=== PATIENT | female | born 1990 | race Caucasian/White ===

== ENCOUNTER 2018-06-21 19:25 | Emergency (ER) | payer OTHER ==
[2018-06-21] MEDS ORDERED: ERTAPENEM 1 GM in NS 100 ML IV ONE (21:19)
--- NOTE | 2018-06-21 21:27 | EDPHY ---
H & P Smoking Status: Current some day smoker Time Seen by Provider: 06/21/18 21:14 HPI/ROS: Chief complaint: Cat bite to chin, infection History of present illness: This is a 27-year-old female who presents to the emergency department after being bitten by her cat on her chin approximately 3 days ago. Since then she has developed redness and swelling to the chin. It is painful. She states her cat is healthy. She is up-to-date on her immunizations. No report of fever. No report of difficulty opening or closing the mouth, talking, swallowing or drooling. (Adam Momin) Physical Exam: General: Alert, nontoxic. Skin: There is erythema and edema to the anterior aspect of the chin and over the anterior aspect of the mandible. The rest of the face and neck without erythema or edema. No tenderness. No fluctuation anywhere to suggest drainable abscess. ENT: No drooling, no hoarseness, no trismus, no stridor. Musculoskeletal: Moving the head without difficulty. (Adam Momin) Constitutional: Initial Vital Signs Temperature (C) 37.2 C 06/21/18 19:27 Heart Rate 97 06/21/18 19:27 Respiratory Rate 16 06/21/18 19:27 Blood Pressure 97/64 L 06/21/18 19:27 O2 Sat (%) 96 06/21/18 19:27 O2 Delivery Mode Room Air Allergies/Adverse Reactions: bacitracin Allergy (Verified 06/21/18 19:29) risperidone [From Risperdal] Allergy (Verified 06/21/18 19:29) ziprasidone [From Geodon] Allergy (Verified 06/21/18 19:29) Home Medications: Medication Instructions Recorded Amoxicillin/Clavulanate Pot 875 mg PO BID #14 tab 06/21/18 [Augmentin 875 MG TAB (*)] MDM/Departure - MDM Medications Given: Discontinued Medications Ertapenem 1 gm/ Sodium (Chloride) 100 mls @ 200 mls/hr IV EDNOW ONE PRN Reason: Protocol Stop: 06/21/18 21:48 Last Admin: 06/21/18 21:38 Dose: 100 mls ED Course/Re-evaluation: PHYSICIAN DOCUMENTATION: The patient was evaluated and managed by the Physician [employer]. My co- signature indicates that I have reviewed this chart and I agree with the findings and plan of care as documented. I am the secondary supervising physician. (Jeremiah Lopez) Patient discussed with my secondary supervising physician Dr. Dejan Lopez. Patient presents with what appears to be a facial cellulitis secondary to a bite from a cat. I do not believe she warrants admission at this time. However , she is given a dose of Invanz IV. She will be discharged home on a course of Augmentin. Home care is discussed including warm compresses. She is to follow up with a primary care doctor for recheck. She is given strict return precautions. She has voiced understanding and agreement with plan. (Adam Momin) - Depart Disposition: Home, Routine, Self-Care Clinical Impression: Facial cellulitis Condition: Good Instructions: Cellulitis (ED) Additional Instructions: Follow-up with a primary care doctor for continued evaluation and care Take antibiotics as prescribed until finished even feeling better Apply warm compresses to the chin 3-4 times daily If symptoms worsen or new symptoms develop return immediately to the emergency department for recheck Prescriptions: Amoxicillin/Clavulanate Pot [Augmentin 875 MG TAB (*)] 875 mg PO BID #14 tab Referrals: [facility],. [Clinic] - As per Instructions
[2018-06-21 21:53] VITALS: BP 102/73
== END 2018-06-21 23:04 | disposition home or self-care (01) ==
DX: L03.211 Cellulitis of face (principal); W55.01XA Bitten by cat, initial encounter
CPT/HCPCS: 96374; J1335